=== PATIENT | male | born 1955 | race Caucasian/White ===

== ENCOUNTER 2019-12-12 13:00 | Inpatient (IN) | payer OTHER ==
[~2019-12-12] VITALS: Ht 180.3 cm; Wt 101.0 kg
[2019-12-12] MEDS ORDERED: metoprolol PO (13:26)
[2019-12-12] MEDS ORDERED: ATOR-2 PO (13:26)
[2019-12-12] MEDS ORDERED: MESA1.2T PO (13:26)
[2019-12-12] MEDS ORDERED: LISI5TAB7 PO (13:26)
[2019-12-12 14:19] LABS: ALANINE AMINOTRANSFERASE 44 U/L (12-78); ALBUMIN 3.6 g/dL (3.4-5.0); ANION GAP 5 mmol/L (5-15); CALCIUM 9.3 mg/dL (8.5-10.1); CHLORIDE 105 mmol/L (98-107); CREATININE 1.24 mg/dL (0.7-1.3)
[2019-12-12 14:22] LABS: ALKALINE PHOSPHATASE 77 U/L (45-117); BILIRUBIN,TOTAL 0.4 mg/dL (0.2-1.0); TOTAL PROTEIN 7.7 g/dL (6.4-8.2)
[2019-12-15] MEDS ORDERED: CLINDAMYCIN 150 MG/ML, 6ML ONE (06:12)
[2019-12-15] MEDS ORDERED: BUPIVACAINE LIPOSOME/PF 10ML INFIL ONE (08:54)
[2019-12-15] MEDS ORDERED: CHLORHEXIDINE 15 ML UDC MM STA (09:26)
[2019-12-15] MEDS ORDERED: CHLORHEXIDINE 15 ML UDC ONE (09:32)
[2019-12-15] MEDS ORDERED: PROMETHAZINE 25 MG/ML, 1ML IVPush PRN (10:00)
[2019-12-15] MEDS ORDERED: OXYcodone 5 MG/5 ML ORAL.SOL UDC PO PRN (10:00)
[2019-12-15] MEDS ORDERED: MEPERIDINE/PF 25MG/0.5ML IVPush PRN (10:00)
[2019-12-15] MEDS ORDERED: HYDROcodone/APAP 7.5-325MG/15ML UDC PO PRN (10:00)
[2019-12-15] MEDS ORDERED: KETOROLAC 30 MG/1 ML IVPush PRN (10:00)
[2019-12-15] MEDS ORDERED: FENTANYL PF 100 MCG/2ML ONE ×2 (10:08→13:34)
[2019-12-15] MEDS ORDERED: MIDAZOLAM 1 MG/ML, 2ML ONE (10:08)
[2019-12-15] MEDS ORDERED: LACTATED RINGERS 1,000 ML IV SCH (10:10)
[2019-12-15] MEDS ORDERED: ACETAMINOPHEN 325 MG TABLET PO PRN (11:30)
[2019-12-15] MEDS ORDERED: DIPHENHYDRAMINE 25 MG CAPSULE PO PRN (11:30)
[2019-12-15] MEDS ORDERED: ONDANSETRON 2MG/ML, 2ML IV PRN (11:30)
[2019-12-15] MEDS ORDERED: CEFAZOLIN PMX 2GM/50ML 50 ML IVPB SCH (11:30)
[2019-12-15] MEDS ORDERED: SENNA/DOCUSATE TABLET PO PRN (11:30)
[2019-12-15] MEDS ORDERED: KETOROLAC 30 MG/1 ML IV SCH (11:30)
[2019-12-15] MEDS ORDERED: OXYcodone IR 5MG TABLET PO PRN (11:30)
[2019-12-15] MEDS ORDERED: morphine SULFATE 10 MG/ML, 1ML IV PRN (11:30)
[2019-12-15] MEDS ORDERED: SUCCINYLCHOLINE 20 MG/ML, 10ML ONE (11:53)
[2019-12-15] MEDS ORDERED: ROCURONIUM 10MG/ML,5ML ONE (11:53)
[2019-12-15] MEDS ORDERED: PHENYLEPHRINE 10 MG/ML ONE (11:53)
[2019-12-15] MEDS ORDERED: SUGAMMADEX 200 MG/2 ML IVPush ONE (11:53)
[2019-12-15] MEDS ORDERED: EPHEDRINE 50 MG/ML, 1ML ONE (11:53)
[2019-12-15] MEDS ORDERED: ONDANSETRON 2MG/ML, 2ML ONE (11:53)
[2019-12-15] MEDS ORDERED: DEXAMETHASONE 4 MG/ML, 1ML ONE (11:53)
[2019-12-15] MEDS ORDERED: PROPOFOL 10 MG/ML, 20ML ONE (11:53)
[2019-12-15] MEDS ORDERED: CEFAZOLIN 1,000 MG ONE (11:53)
[2019-12-15] MEDS ORDERED: D5%-0.45% NACL 1,000 ML IV SCH (12:54)
[2019-12-15] MEDS ORDERED: OXYcodone 5 MG/5 ML ORAL.SOL UDC ONE (13:35)
[2019-12-15] MEDS ORDERED: HYDROmorphone 1 MG/ML, 1ML INJ ONE (13:35)
[2019-12-15] MEDS: FENTANYL PF 100 MCG/2ML IV PRN ×2 (13:36→13:41)
[2019-12-15] MEDS: HYDROmorphone 1 MG/ML, 1ML INJ IVPush PRN ×2 (14:00→14:10)
[2019-12-15] MEDS ORDERED: KETOROLAC 30 MG/1 ML ONE (14:18)
[2019-12-15] MEDS ORDERED: MESALAMINE 1.2 GM TABLET.DR PO SCH (16:00)
[2019-12-15] MEDS ORDERED: FLU VACC QS2020-21(6MOS UP)/PF 60MCG/0.5 ML SYR IM-VACC ONE (17:30)
[2019-12-15 18:31] VITALS: BP 115/73
[2019-12-15] MEDS ORDERED: METOPROLOL TARTRATE 50 MG TAB PO SCH (21:00)
[2019-12-15] MEDS ORDERED: DOCUSATE 100 MG CAPSULE PO SCH (21:00)
[2019-12-16] MEDS ORDERED: LISINOPRIL 5 MG TABLET PO SCH (09:00)
[2019-12-16] MEDS ORDERED: ATORVASTATIN 40 MG TABLET PO SCH (09:00)
== END 2019-12-15 18:35 | disposition home or self-care (01) | DRG 483 ==
LOC: EDSTATUS 12-15 07:00 → ORIP 12-15 09:15 → 4NE 12-15 14:47
PROVIDERS: ADMIT Orthopaedic Surgery; ATTEND Orthopaedic Surgery
PROC: 0LS40ZZ Reposition Left Upper Arm Tendon, Open Approach (ICD-10-PCS; 2019-12-15)
PROC: 0RRK00Z Replacement of Left Shoulder Joint with Reverse Ball and Socket Synthetic Substitute, Open Approach (ICD-10-PCS; principal; 2019-12-15 11:45)
DX: T84.89XA Other specified complication of internal orthopedic prosthetic devices, implants and grafts, initial encounter (principal); Y83.8 Other surgical procedures as the cause of abnormal reaction of the patient, or of later complication, without mention of misadventure at the time of the procedure; Y92.89 Other specified places as the place of occurrence of the external cause; M13.812 Other specified arthritis, left shoulder; Z88.2 Allergy status to sulfonamides; Z88.8 Allergy status to other drugs, medicaments and biological substances; Z87.891 Personal history of nicotine dependence
CPT/HCPCS: 36415; 73020; S0077; 80053; 87635; 90686; 93005; C1713; C1776; G0378; J0690; J1100; J1170; J1885; J2250; J2405; J2704; J3010; C1769; J0330; J2370